=== PATIENT | female | born 2000 | race African-American/Black ===

== ENCOUNTER 2020-08-23 15:29 | Inpatient (IN) | payer SELFPAY ==
[~2020-08-23] VITALS: Ht 177.8 cm; Wt 77.1 kg
[2020-08-23] MEDS ORDERED: KETOROLAC TROMETHAMINE INJ 30 MG/ML VIAL IV ONE (16:00)
--- NOTE | 2020-08-23 16:00 | NUR ---
Verbal order for 2tabs of Pinon given as ordered
[2020-08-23] MEDS ORDERED: KETOROLAC TROMETHAMINE 15 MG/ML VIAL ONE (16:04)
[2020-08-23 16:40] LABS: BASOPHILS % (AUTO) 0.2 % (0.0-2.0); HEMATOCRIT 38 % (33-45); HEMOGLOBIN 12.2 g/dL (11.5-14.8); LYMPHOCYTES # (AUTO) 0.5 /CMM (0.8-4.8); LYMPHOCYTES % (AUTO) 9.2 % (20.0-44.0); MEAN CORPUSCULAR HGB CONC 33 g/dl (31.0-36.0); MEAN CORPUSCULAR VOLUME 86 fL (82-100); MONOCYTES # (AUTO) 0.4 /CMM (0.1-1.30); MONOCYTES % (AUTO) 6.8 % (2.0-12.0); NEUTROPHILS # (AUTO) 4.8 /CMM (1.8-8.9); NEUTROPHILS % (AUTO) 83.8 % (43.0-81.0); PLATELET COUNT (AUTO) 248 /CMM (150-450); RED BLOOD CELL COUNT(AUTO) 4.36 MIL/uL (4.0-5.2); WHITE BLOOD COUNT (AUTO) 5.8 K/uL (4.3-11.0)
[2020-08-23 16:43] LABS: CALCIUM, SERUM 8.9 mg/dL (8.5-10.1); CREATININE 0.8 mg/dL (0.6-1.3); POTASSIUM 4.1 mmol/L (3.5-5.1)
[2020-08-23 16:49] LABS: ALBUMIN 3.6 g/dL (3.4-5.0); BILIRUBIN,DIRECT 0.1 mg/dL (0.0-0.2); BILIRUBIN,TOTAL 0.4 mg/dL (0.2-1.0); TOTAL PROTEIN, SERUM 6.7 g/dL (6.4-8.2)
--- NOTE | 2020-08-23 17:30 | NUR ---
US done-result to MD. Pt made aware of plan
[2020-08-23 17:35] LABS: BILIRUBIN,URINE Negative (NEGATIVE); COLOR,URINE YELLOW (YELLOW); LEUKOCYTE ESTERASE ,URINE Negative (NEGATIVE); NITRITE, URINE Negative (NEGATIVE); PROTEIN,URINE Negative (NEGATIVE); UGLUCOSE Negative (NEGATIVE); UROBILINOGEN,URINE 0.2 EU/dL (0.2)
[2020-08-23] MEDS ORDERED: HYDROCODONE/APAP 5/325MG TABLET ONE (17:40)
[2020-08-23 17:47] LABS: BACTERIA,URINE Rare /HPF (None Seen); RBC,URINE NONE SEEN /HPF (0-2); SQUAMOUS EPITHELIAL CELL,UR Few /HPF (None Seen); WBC,URINE NONE SEEN /HPF (0-3)
[2020-08-23] MEDS ORDERED: HYDROCODONE/APAP 5/325MG TABLET PO ONE (18:00)
--- NOTE | 2020-08-23 18:40 | NUR ---
Screaming and asking for pain medicine medicated as ordered
[2020-08-23] MEDS ORDERED: MORPHINE SULFATE INJ 4 MG/ML DISP.SYRIN ONE ×2 (18:52→21:34)
[2020-08-23] MEDS ORDERED: ONDANSETRON HCL/PF 4 MG/2 ML VIAL ONE (18:52)
[2020-08-23] MEDS ORDERED: MORPHINE SULFATE INJ 2 MG/ML DISP.SYRIN IV ONE (19:00)
[2020-08-23] MEDS ORDERED: ONDANSETRON HCL/PF 4 MG/2 ML VIAL IV ONE (19:00)
--- NOTE | 2020-08-23 19:15 | NUR ---
PT AAOX4, VSS, RESPIRATIONS EVEN AND UNLABORED ON RA W/ NAD NOTED. PT CONNECTED TO THE EXPLOSIVE ORDNANCE MANAGER AND POX.
--- NOTE | 2020-08-23 19:17 | NUR ---
Nurse knowledge exchange w/RN Cristiane for continuity of Care
--- NOTE | 2020-08-23 19:56 | NUR ---
COVID SWAB SENT TO LAB
[2020-08-23] MEDS ORDERED: IV PREMIX D5 1/2NS + KCL 1,000 ML IV PRN (20:00)
--- NOTE | 2020-08-23 20:33 | NUR ---
call from lab. rapid covid negative.
[2020-08-23] MEDS ORDERED: MORPHINE SULFATE INJ 4 MG/ML DISP.SYRIN IV ONE (21:30)
--- NOTE | 2020-08-23 21:42 | NUR ---
PT'S MOM (VANNESSA)
[2020-08-23] MEDS ORDERED: IV PREMIX D5 1/2NS + KCL 1,000 ML IV ONE (23:48)
[2020-08-24] MEDS ORDERED: ONDANSETRON HCL/PF 4 MG/2 ML VIAL IV PRN
--- NOTE | 2020-08-24 00:24 | NUR ---
PT RESTING COMFORTABLY IN BED. VSS. NO ACUTE DISTRESS NOTED.
[2020-08-24] MEDS ORDERED: ONDANSETRON HCL/PF 4 MG/2 ML VIAL ONE (02:09)
[2020-08-24] MEDS: MORPHINE SULFATE INJ 4 MG/ML DISP.SYRIN IV PRN ×2 (02:10→13:02)
[2020-08-24] MEDS ORDERED: MORPHINE SULFATE INJ 4 MG/ML DISP.SYRIN ONE (02:10)
--- NOTE | 2020-08-24 06:05 | NUR ---
REPORT GIVEN TO SHARLA TRAYLOR FOR YANG
--- NOTE | 2020-08-24 06:35 | NUR ---
SHARLA NOTES PT IS A 20 YEAR OLD FEMALE ARRIEVED VIA WHEEL CHAIR FROM ER. PT ALERT AND ORIENTED X4 PUPILS EQUAL AND REACTIVE TO LIGHT AND ACCOMMODATION. NO SIGNS OF RESPIRATORY DISTRESS OR PAIN VISIBLE. OR REPORTED.AT THIS TIME IV ACCESS ON THE RFA 20 G INTACT. PT IS AMBULATORY GAIT IS STEADY.PT IS CURRENTLY NPO. PT ARRIEVED AT THE ER WITH COMPLAINT OF LOWER ABDOMINAL PAIN. ADBDOMEN NON DISTENDED LEFT LOWER QUADRANT TENDER TO TOUCH. ORIENTED TO UNIT AND ROOM. CALL LIGHT WITHING REACH. BED LOCKED IN POSITION . WILL CONTINUE TO MONITOR. Addendum: 08/24/20 at 0711 by NILDA GAMEZ RN VITAL SIGNS ARE SBP 124/74 PULSE 71 RR 20 O2 SATURATION 100%
--- NOTE | 2020-08-24 07:06 | NUR ---
PT TRANSFERRED TO ROOM IN STABLE CONDITION
--- NOTE | 2020-08-24 07:40 | NUR ---
MS RN OPENING NOTES RECEIVED PATIENT IN BED, AWAKE, A/O X4. PATIENT ON ROOM AIR; BREATHING EVEN AND UNLABORED; NO SOB NOTED. NO COMPLAINS OF PAIN AT THIS TIME. RFA IV ACCESS G # 20 PRESENT AND INTACT. SAFETY PRECAUTIONS IN PLACE; BED IN LOW POSITION AND LOCKED, RAILS UP X2, CALL LIGHT WITHIN REACH. WILL CONTINUE TO MONITOR PATIENT.
[2020-08-24 08:00] VITALS: BP 112/62
--- NOTE | 2020-08-24 13:26 | NUR ---
MS SCREEN CUTTER AND TRIMMER NOTES PATIENT DISCHARGED HOME IN MEDICALLY STABLE CONDITION. PATIENT ON ROOM AIR; BREATHING EVEN AND UNLABORED. ALL DISCHARGE PAPERWORK DONE AND SIGNED BY PATIENT. BELONGINGS ACCOUNTED FOR AND FORM SIGNED WELL. IV LINE REMOVED BEFORE PATIENT LEFT THE FLOOR AT 1315. PATIENT LEFT THE UNIT VIA WHEELCHAIR ACCOMPANIED BY DRUGLESS PHYSICIAN. IN THE LOBBY PATIENT MET BY THE MOTHER. PATIENT LEFT IN A PRIVATE CAR.
== END 2020-08-24 13:15 | disposition home or self-care (01) | DRG 761 ==
LOC: ER 15:33 → TRANSITION 21:55 → MED 08-24 04:36
PROVIDERS: ADMIT Nurse Practitioner Acute Care; ATTEND Nurse Practitioner Acute Care
DX: N83.201 Unspecified ovarian cyst, right side (principal); N83.511 Torsion of right ovary and ovarian pedicle; J45.909 Unspecified asthma, uncomplicated; Z20.822 Contact with and (suspected) exposure to COVID-19
CPT/HCPCS: 36415; 76856-TC; 80048-TC; 80076-TC; 81001; 83690-TC; 84703-TC; 85025-TC; 85730-TC; 87081-TC; C9803; G0378; J1885; J2270; J2405; J3490